=== PATIENT | male | born 1945 | race Caucasian/White ===

== ENCOUNTER → 2018-06-05 | Outpatient (CLI) | payer BC, MEDICARE ==
--- NOTE | 2018-06-05 11:53 | XR ---
EXAMINATION TYPE: XR chest 2V DATE OF EXAM: 06/05/2018 COMPARISON: NONE TECHNIQUE: PA and lateral views submitted. HISTORY: Shortness of breath FINDINGS: The lungs are clear and there is no pneumothorax, pleural effusion, or focal pneumonia. Arthropathy of the shoulders. Atherosclerotic change aorta. Degenerative change of the spine. Subsegmental basil ar changes are noted. IMPRESSION: 1. Subsegmental basilar changes may been the basis of atelectasis rather than infiltrate correlate cl inically..
[2018-06-05 12:29] LABS: Basophils % (A) 1 %; Eosinophils # (A) 0.2 k/uL (0-0.7); Eosinophils % (A) 3 %; HCT 42.8 % (39.0-53.0); HGB 14.8 gm/dL (13.0-17.5); Lymphocytes # (A) 1.4 k/uL (1.0-4.8); Lymphocytes % (A) 22 %; MCH 32.9 pg (25.0-35.0); MCHC 34.5 g/dL (31.0-37.0); MCV 95.3 fL (80.0-100.0); Mean Platelet Volume 7.2; Monocytes # (A) 0.4 k/uL (0-1.0); Monocytes % (A) 6 %; Neutrophils # (A) 4.3 k/uL (1.3-7.7); Neutrophils % (A) 66 %; Platelet Count 292 k/uL (150-450); RBC 4.49 m/uL (4.30-5.90); RDW 12.6 % (11.5-15.5); WBC 6.5 k/uL (3.8-10.6)
[2018-06-05 15:13] LABS: Erythrocyte Sedimentation Rate 8 mm/hr (0-15)
[2018-06-05 19:02] LABS: Vitamin D 25 Hydroxy 57.5 ng/mL (30.0-100.0)
[2018-06-05 19:47] LABS: ALT 24 U/L (10-49); AST 22 U/L (14-35); Albumin/Globulin Ratio 1.79 (1.60-3.17); Alkaline Phosphatase 83 U/L (41-126); C Reactive Protein <0.4 mg/dL (0.0-0.8); Calcium 9.2 mg/dL (8.7-10.3); Carbon Dioxide 25.1 mmol/L (21.6-31.8); Chloride 101 mmol/L (96-109); Cholesterol 152 mg/dL (0-200); Creatine Kinase 212 U/L (35-257); GGT 51 U/L (0-73); Globulin 2.4 g/dL (1.6-3.3); Glucose 104 mg/dL (70-110); LDL Cholesterol,Calculated 74.8 mg/dL (0.0-131.0); Potassium 4.5 mmol/L (3.5-5.5); Sodium 134 mmol/L (135-145); Total Bilirubin 0.4 mg/dL (0.3-1.2); Total Protein 6.7 g/dL (6.2-8.2)
[2018-06-05 19:54] LABS: Hepatitis C IgG Antibody Non-Reactive (Non-Reactive)
== END ==
LOC: LABWHC1 10:30
PROVIDERS: ATTEND Internal Medicine
DX: R06.02 Shortness of breath (principal); N40.0 Benign prostatic hyperplasia without lower urinary tract symptoms; J44.9 Chronic obstructive pulmonary disease, unspecified; E78.5 Hyperlipidemia, unspecified; E03.9 Hypothyroidism, unspecified; M81.0 Age-related osteoporosis without current pathological fracture; E55.9 Vitamin D deficiency, unspecified
CPT/HCPCS: 86803; 80061; 80053; 85652; 84443; 82550; 82977; 85025; 86140; 82306; 71046; 36415; G0103

== ENCOUNTER → 2018-08-08 | Outpatient (CLI) | payer OTHER ==
--- NOTE | 2018-08-08 17:46 | MR ---
EXAMINATION TYPE: MR wrist RT wo con DATE OF EXAM: 08/08/2018 COMPARISON: HISTORY: Rt wrist pain, posterior aspect Standard multiplanar, multisequence MRI departmental protocol Multiplanar, multisequence images of the right wrist were acquired. FINDINGS: Intercarpal joint spaces are fairly normal. Proximal metacarpals appear intact. There is mi ld spurring at the first carpometacarpal joint. On the T2 images there is some diffuse increased sign al in the distal radius near the radiocarpal joint. This is seen on the medial aspect. There is moder ate narrowing of the radiocarpal joint space. There is mild increased signal within the lunate. There are small degenerative cysts in the articular surface of the distal radius. The extensor and flexor tendons appear intact. Distal ulna is intact. There is no evidence of a soft tissue mass. There are small amount of fluid at the radial ulnar joint. IMPRESSION: Osteoarthritis of the radiocarpal joint with small joint effusion. There is edema in the lunate and d istal radius consistent with bone bruising. No fracture seen. Mild osteoarthritis at the first carpom etacarpal joint.
== END ==
LOC: RADMRIMAIN 08:10
DX: M19.031 Primary osteoarthritis, right wrist (principal); M18.9 Osteoarthritis of first carpometacarpal joint, unspecified

== ENCOUNTER → 2018-08-13 | Outpatient (CLI) | payer MEDICARE, OTHER ==
--- NOTE | 2018-08-13 13:52 | XR ---
Lumbosacral spine HISTORY: Pain 5 views of lumbosacral spine No comparisons Bone mineralization is reduced. There is no evident spondylolysis. Multilevel spondylosis is present. Loss of disc height L5-S1, L4-5 with associated vacuum phenomenon. Superior endplate of L3 shows mil d depression centrally. L2 shows loss of height of approximately 25% superior endplate is associated vacuum phenomenon. Suspect there is mild retropulsion. Sclerosis present in the posterior elements of the lower lumbar spine. Mild anterior wedging present at T12. Postop changes are noted in the abdome n. Sclerotic vascular calcifications are present. IMPRESSION: Vertebral compression fractures of indeterminate age. Degenerative disease and facet arth ropathy.
--- NOTE | 2018-08-13 13:53 | XR ---
Thoracic spine HISTORY: Pain 3 views of the thoracic spine Bone mineralization is reduced. There is multilevel spondylosis. Thoracic vertebral bodies show prese rved height and alignment. Postop changes are noted incidentally. IMPRESSION: Thoracic spondylosis, osteopenia.
== END | disposition home or self-care (01) ==
LOC: LABWHC1 11:49
PROVIDERS: ATTEND Internal Medicine
DX: M47.817 Spondylosis without myelopathy or radiculopathy, lumbosacral region (principal); M47.814 Spondylosis without myelopathy or radiculopathy, thoracic region; M46.97 Unspecified inflammatory spondylopathy, lumbosacral region; M48.57XA Collapsed vertebra, not elsewhere classified, lumbosacral region, initial encounter for fracture; M85.88 Other specified disorders of bone density and structure, other site; J44.9 Chronic obstructive pulmonary disease, unspecified
CPT/HCPCS: 36415; 72072; 72110; 82103

== ENCOUNTER → 2018-09-18 | Outpatient (CLI) | payer BC, MEDICARE ==
--- NOTE | 2018-09-20 19:55 | MR ---
EXAMINATION TYPE: MR lumbar spine wo/w con DATE OF EXAM: 09/18/2018 COMPARISON: None HISTORY: Chronic LBP, BLE radic TECHNIQUE: Multiplanar, multisequence images of the lumbar spine were acquired utilizing 8.5 mL intravenous Gada vist gadolinium contrast. Lumbar vertebra have normal alignment. There is L4-5 disc space narrowing. There is mild narrowing of the other disc spaces. There is 20% anterior wedging of L1 vertebral body. There is 10% wedging of T 12 vertebral body. Lumbar nerve roots appear normal. There is mild posterior disc bulging from L2 to L5. There is no spinal stenosis. There is no lumbar paraspinal mass. There is no pathologic enhanceme nt. There is multilevel hypertrophic facet arthropathy. IMPRESSION: Multilevel spondylotic changes. Mild compression fractures of T12 and L1 and L3 are not changed jaylin red to lumbar spine x-rays exam of 08/13/2018. No acute fracture seen.. No spinal stenosis.
== END | disposition home or self-care (01) ==
LOC: RADMRIMAIN 19:08
DX: M47.26 Other spondylosis with radiculopathy, lumbar region (principal); S32.019A Unspecified fracture of first lumbar vertebra, initial encounter for closed fracture; S32.039A Unspecified fracture of third lumbar vertebra, initial encounter for closed fracture
CPT/HCPCS: 72158; A9585

== ENCOUNTER → 2018-10-22 | Outpatient (CLI) | payer BC, MEDICARE ==
--- NOTE | 2018-10-22 15:58 | US ---
EXAMINATION TYPE: US venous doppler duplex LE RT DATE OF EXAM: 10/22/2018 3:49 PM COMPARISON: NONE CLINICAL HISTORY: R22.41 Swelling Right Lower Extremity. Right leg pain and swelling x 2 days SIDE PERFORMED: Right TECHNIQUE: The lower extremity deep venous system is examined utilizing real time linear array sonog janie with graded compression, doppler sonography and color-flow sonography. VESSELS IMAGED: External Iliac Vein (EIV) Common Femoral Vein Deep Femoral Vein Greater Saphenous Vein * Femoral Vein Popliteal Vein Small Saphenous Vein * Proximal Calf Veins (* superficial vessels) Right Leg: Appears negative for DVT IMPRESSION: Right lower extremity ultrasound negative for deep venous thrombosis.
== END | disposition home or self-care (01) ==
LOC: RADUSWWP 15:29
PROVIDERS: ATTEND Internal Medicine
DX: R22.41 Localized swelling, mass and lump, right lower limb (principal); Z88.5 Allergy status to narcotic agent

== ENCOUNTER → 2019-03-25 | Day surgery (SDC) | payer BC, MEDICARE, OTHER ==
[2019-03-24 12:32] VITALS: BMI 26.0
[~2019-03-25] MED LIST: LACTATED RINGERS 1,000 ML IV SCH; LIDOCAINE 1% 20 ML VIAL (10MG/ML) FOR IV START INTRADERMA PRN; LIDOCAINE 1% INJ 10MG/ML (20 ML MDV) ONE; PROPOFOL 10 MG/ML 20 ML VIAL IV ONE
[2019-03-25 08:21] VITALS: RESP 16; TEMP 97.8
--- NOTE | 2019-03-25 09:32 | P.PCN ---
Date of Procedure: 03/25/19 Description of Procedure: Brief history: Patient is a pleasant 73-year-old male presenting for outpatient EGD and colonoscopy for screening for malignant neoplasm of the colon and Perez's esophagus surveillance. Procedure performed: Esophagogastroduodenoscopy with biopsy Colonoscopy Estimated blood loss: Minimal. Preoperative diagnosis: Perez's esophagus, screening for malignant neoplasm of the colon, patient reports last colonoscopy 2 years ago [place]est[place] [facility] [place]: After informed consent was obtained from the patient was brought into the endoscopy unit and IV sedation was administered by anesthesia under continuous monitoring. Initially upper endoscopy was done. The Olympus GF 190 video endoscope was inserted into the mouth and esophagus intubated without any difficulty and was gradually advanced into the stomach and duodenum and carefully examined. The bulb and second part of the duodenum appeared normal, with biopsies taken . The scope was then withdrawn into the stomach adequately insufflated with air and upon careful examination the antrum and body, cardia and fundus appeared normal, except for some mild scattered erythema in the antrum and body suggestive of mild gastritis with biopsies taken . The scope was then withdrawn into the esophagus. The GE junction was located at 36 cm to the incisors. A 3 cm segment of salmon-colored mucosa in the distal esophagus consistent with patient's history of Perez's esophagus noted and biopsied. A small hiatal hernia was also noted. Rest of the esophagus appeared normal. Patient tolerated the procedure well. At this time the patient continued to remain sedation. Initial digital rectal examination was normal. Olympus CF 190 video colonoscope was then inserted into the rectum and gradually advanced to the cecum without any difficulty. Careful examination was performed as the scope was gradually being withdrawn. The prep was excellent. The cecum, ascending colon, transverse colon, descending colon, sigmoid colon and rectum appeared normal. Multiple diverticula noted in the left colon. Retroflexion was performed in the rectum and no lesions were noted. Patient tolerated the procedure well. Impression: 1. Mild gastritis antrum body, biopsied. Duodenal biopsies. 3 cm segment of Perez's esophagus biopsied. 2. Moderate left colonic diverticulosis. Recommendations: Findings of this examination were discussed with the patient as well as his . Okay to resume diet. Okay to resume medications. Await pathology from biopsies. Repeat EGD in 3 years for Perez's screening. Consideration for repeat colonoscopy in 5-10 years based on previous findings on colonoscopy which the patient is unable to report at this time.
[2019-03-25 09:48] VITALS: BP 118/76; PULSE 63
== END ==
LOC: ORWHC2ENDO 07:50
PROVIDERS: ATTEND Internal Medicine
DX: Z12.11 Encounter for screening for malignant neoplasm of colon (principal); K57.30 Diverticulosis of large intestine without perforation or abscess without bleeding; K44.9 Diaphragmatic hernia without obstruction or gangrene; K29.50 Unspecified chronic gastritis without bleeding; K22.70 Barrett's esophagus without dysplasia; K21.0 Gastro-esophageal reflux disease with esophagitis; Z88.5 Allergy status to narcotic agent; I10 Essential (primary) hypertension; E07.9 Disorder of thyroid, unspecified; F32.9 Major depressive disorder, single episode, unspecified; Z79.899 Other long term (current) drug therapy; Z79.890 Hormone replacement therapy; Z79.891 Long term (current) use of opiate analgesic; Z79.51 Long term (current) use of inhaled steroids; Z98.890 Other specified postprocedural states
CPT/HCPCS: 88305; 45378; 43239; J2001; J2704

== ENCOUNTER 2019-07-17 17:52 | Emergency (ER) | payer MEDICARE, BC ==
--- NOTE | 2019-07-17 18:22 | XR ---
EXAMINATION TYPE: XR chest 1V portable DATE OF EXAM: 07/17/2019 COMPARISON: 06/05/2018 HISTORY: Cough and fever TECHNIQUE: 2 views FINDINGS: Heart and mediastinum are normal for age. There is some coarse interstitial and airspace de nsity right lower lobe. Left lung is clear. There is no heart failure. There are no hilar masses. IMPRESSION: There is a new right lower lobe pneumonia compared to old exam. Normal heart.
[2019-07-17] MEDS ORDERED: cefTRIAXone IN SWFI 1,000 MG/10 ML SYRINGE IVP STA (18:31)
[2019-07-17 18:39] LABS: Basophils % (A) 0 %; Eosinophils # (A) 0.2 k/uL (0-0.7); Eosinophils % (A) 2 %; HCT 43.6 % (39.0-53.0); HGB 14.1 gm/dL (13.0-17.5); Lymphocytes # (A) 0.8 k/uL (1.0-4.8); Lymphocytes % (A) 11 %; MCH 31.7 pg (25.0-35.0); MCHC 32.3 g/dL (31.0-37.0); MCV 98.2 fL (80.0-100.0); Mean Platelet Volume 7.7; Monocytes # (A) 0.6 k/uL (0-1.0); Monocytes % (A) 8 %; Neutrophils # (A) 5.7 k/uL (1.3-7.7); Neutrophils % (A) 76 %; Platelet Count 219 k/uL (150-450); RBC 4.44 m/uL (4.30-5.90); RDW 12.2 % (11.5-15.5); WBC 7.5 k/uL (3.8-10.6)
[2019-07-17 18:51] LABS: Appearance,Urine Clear (Clear); Bilirubin,Urine Negative (Negative); Blood,Urine Negative (Negative); Color,Urine Yellow; Glucose,Urine (UA) Negative (Negative); Ketones,Urine Negative (Negative); Leukocyte Esterase,Urine Negative (Negative); Mucus,Urine Rare /hpf; Nitrite,Urine Negative (Negative); PH, Urine 7.5 (5.0-8.0); Protein,Urine 1+ (Negative); Specific Gravity,Urine 1.015 (1.001-1.035); WBC,Urine 2 /hpf (0-5)
[2019-07-17 18:52] LABS: ALT 14 U/L (4-49); AST 19 U/L (17-59); African American GFR (CKD) >90 (>60 ml/min/1.73 sqM); Albumin 3.9 g/dL (3.5-5.0); Alkaline Phosphatase 86 U/L (38-126); Anion Gap 9 mmol/L; Blood Urea Nitrogen 10 mg/dL (9-20); C Reactive Protein 74.2 mg/L (<10.0); Calcium 8.5 mg/dL (8.4-10.2); Carbon Dioxide 21 mmol/L (22-30); Chloride 107 mmol/L (98-107); Glucose 113 mg/dL (74-99); LDH 543 U/L (313-618); Magnesium 2.2 mg/dL (1.6-2.3); Non-African American GFR(CKD) >90 (>60 ml/min/1.73 sqM); Potassium 4.1 mmol/L (3.5-5.1); Sodium 137 mmol/L (137-145); Total Bilirubin 0.8 mg/dL (0.2-1.3); Total Protein 7.1 g/dL (6.3-8.2)
[2019-07-17 18:56] LABS: D-Dimer 0.57 mg/L FEU (<0.60); Partial Thromboplastin Time 24.6 sec (22.0-30.0); Prothrombin Time 10.1 sec (9.0-12.0)
[2019-07-17 19:37] VITALS: PULSE 84
[2019-07-17] MEDS ORDERED: ACETAMINOPHEN TAB 325 MG TAB PO STA (19:47)
--- NOTE | 2019-07-17 19:47 | ED ---
Fever HPI - General Source: patient Mode of arrival: ambulatory Limitations: no limitations <Nancie Johnson - Last Filed: 07/17/19 20:14> <Junior Shelby - Last Filed: 07/17/19 20:20> - General Chief Complaint: Fever Stated Complaint: Fever Time Seen by Provider: 07/17/19 17:59 - History of Present Illness Initial Comments: 73-year-old male presented for cough fevers x 2-3 days. Patient states he's had a cough for the past 2 days. He states he has felt warm today. Patient states he has slight diarrhea. Denies bloody or dark stools. Patient denies any rashes. Patient denies any chest pain is due to slight shortness of breath. Patient denies any headache or neck stiffness as he noticed dysuria or urgency frequency. Patient has no additional complaints he is not here in respiratory distress on arrival. Patient is actually well room air he is not tachycardic and blood pressure stable. Patient is very pleasant. (Nancie Johnson) - Related Data Home Medications Medication Instructions Recorded Confirmed Lisinopril [Zestril] 20 mg PO QAM 10/23/15 07/17/19 [place]-3 Fatty Acids/Fish Oil [Fish 1 tab PO DAILY 10/23/15 07/17/19 Oil 1,000 mg Softgel] Oxybutynin Chloride [Ditropan] 5 mg PO HS 10/23/15 07/17/19 Tamsulosin [Flomax] 0.4 mg PO BID 10/23/15 07/17/19 buPROPion SR [Wellbutrin SR] 150 mg PO QAM 10/23/15 07/17/19 Albuterol Sulfate [Albuterol 2 puff PO Q6H PRN 03/24/19 07/17/19 Sulfate Hfa] Beclomethasone Dip 80 Mcg/Puff 1 puff INHALATION BID 03/24/19 07/17/19 [Qvar 80 mcg] Cyclobenzaprine HCl 10 mg PO HS PRN 03/24/19 07/17/19 Dorzolamide 2% [Trusopt 2%] 1 drops BOTH EYES BID 03/24/19 07/17/19 Gabapentin [Neurontin] 100 mg PO BID 03/24/19 07/17/19 Glucosam/Bennie-Msm1/C/Francis/Bosw 1 each PO DAILY 03/24/19 07/17/19 [Glucosamine-Chondroitin Tablet] HYDROcodone/APAP 5-325MG [[place] 1 tab PO TID PRN 03/24/19 07/17/19 5-325] Hydrochlorothiazide [Hydrodiuril] 50 mg PO DAILY 03/24/19 07/17/19 Latanoprost/Pf [Latanoprost 0.005% 1 drop BOTH EYES HS 03/24/19 07/17/19 Eye Drop] Levothyroxine Sodium [Synthroid] 75 mcg PO QAM 03/24/19 07/17/19 Memantine HCl 10 mg PO BID 03/24/19 07/17/19 Methylphenidate HCl [Ritalin LA] 20 mg PO BID 03/24/19 07/17/19 Multivitamins, Thera [Multivitamin 1 tab PO DAILY 03/24/19 07/17/19 (formulary)] Salsalate [Disalcid] 750 mg PO BID 03/24/19 07/17/19 amLODIPine [Norvasc] 5 mg PO HS 03/24/19 07/17/19 FLUoxetine HCL [PROzac] 10 mg PO DAILY 07/17/19 07/17/19 Omeprazole 40 mg PO BID 07/17/19 07/17/19 Simvastatin [Zocor] 40 mg PO HS 07/17/19 07/17/19 Timolol 0.5% Ophth Soln [Timoptic 1 drop BOTH EYES DAILY 07/17/19 07/17/19 0.5% Ophth Soln] Previous Rx's Medication Instructions Recorded Azithromycin [Zithromax Z-pack] 0 mg PO DIRECTED #6 tab 07/17/19 Allergies Allergy/AdvReac Type Severity Reaction Status Date / Time codeine Allergy Confusion Verified 07/17/19 17:58 Review of Systems ROS Other: All systems not noted in ROS Statement are negative. <Nancie Johnson - Last Filed: 07/17/19 20:14> ROS Other: All systems not noted in ROS Statement are negative. <Junior Shelby - Last Filed: 07/17/19 20:20> ROS Statement: Those systems with pertinent positive or pertinent negative responses have been documented in the HPI. Past Medical History Past Medical History: GERD/Reflux, Hyperlipidemia, Hypertension, Osteoarthritis (OA), Prostate Disorder, Rheumatoid Arthritis (RA) Additional Past Medical History / Comment(s): APONTE'S ESOPHAGUS,enlarged pros núñez History of Any Multi-Drug Resistant Organisms: None Reported Past Surgical History: Cholecystectomy, Ear Surgery, Hernia Repair, Orthopedic Surgery Additional Past Surgical History / Comment(s): HIATAL HERNIA REPAIR X 2, . REPAIR RIGHT EAR DRUM X 2. ORIF RIGHT ANKLE. Past Anesthesia/Blood Transfusion Reactions: No Reported Reaction Past Psychological History: ADD/ADHD, Depression Smoking Status: Never smoker Past Alcohol Use History: None Reported, Occasional Past Drug Use History: None Reported - Past Family History Mother Family Medical History: No Reported History Father Family Medical History: Cancer Additional Family Medical History / Comment(s): bone Sister(s) Family Medical History: Cancer Additional Family Medical History / Comment(s): bone <ElizabethNancie L - Last Filed: 07/17/19 20:14> General Exam Limitations: no limitations <Nancie Johnson L - Last Filed: 07/17/19 20:14> - General Exam Comments Initial Comments: General: The patient is awake and alert, in no distress Eye: +3 mm pupils are equal, round and reactive to light, extra-ocular mov ements are intact. No nystagmus. There is normal conjunctiva bilaterally. No signs of icterus. No photophobia Ears, nose, mouth and throat: There are moist mucous membranes and no oral lesions. Oropharynx was not erythematous there is no tonsillar enlargement exudates or lesions. Uvula midline. Tympanic membranes are not erythematous or is no effusions bulging or retraction. No tenderness to palpation of the mastoid. No anterior cervical lymphadenopathy. Rhinorrhea, clear and bilateral nares. No tripoding, no drooling. Neck: The neck is supple, there is no tenderness or JVD. No nuchal rigidity Cardiovascular: There is a regular rate and rhythm. No murmur, rub or gallop is appreciated. Respiratory: Respirations are non-labored, breath sounds are equal. No wheezes, stridor, rhonchi. Rales noted mid right side, mild. No retractions or abdominal breathing. Dry cough. Gastrointestinal: Soft, non-distended, non-tender abdomen without masses or organomegaly noted. There is no rebound or guarding present. Bowel sounds are unremarkable. Musculoskeletal: Normal ROM, no tenderness. Strength 5/5. Sensation intact. Radial pulses equal bilaterally 2+. Neurological: A&O x 3. CN II-XII intact grossly, There are no obvious motor or sensory deficits. Coordination appears grossly intact. Speech appears normal, no muffling. Skin: Skin is warm and dry and no rashes or lesions are noted. No extremity edema Psychiatric: Cooperative (Nancie Johnson) Course <Junior Shelby - Last Filed: 07/17/19 20:20> Vital Signs 07/17/19 07/17/19 17:54 19:35 Temperature 99.4 F 100.5 F H Pulse Rate 86 84 Respiratory 18 16 Rate Blood Pressure 136/83 126/84 O2 Sat by Pulse 96 96 Oximetry - Reevaluation(s) Reevaluation #1: 07/17/19 20:19 Patient is cooperative [id number] evaluation patient he did present with complaints consistent with pneumonia. Covid is suspected. Patient was offered admission is refusing at this time he is aware the risks and benefits thereof. Return parameters. I do agree with the assessment and plan (Junior Shelby) Medical Decision Making - Lab Data Result diagrams: 07/17/19 18:20 07/17/19 18:20 <Nancie Johnson - Last Filed: 07/17/19 20:14> - Lab Data Result diagrams: 07/17/19 18:20 07/17/19 18:20 <Junior Shelby - Last Filed: 07/17/19 20:20> - Medical Decision Making 73 (Nancie Johnson) - Lab Data Lab Results 07/17/19 07/17/19 07/17/19 Range/Units 18:20 18:20 18:20 WBC 7.5 (3.8-10.6) k/uL RBC 4.44 (4.30-5.90) m/uL Hgb 14.1 (13.0-17.5) gm/dL Hct 43.6 (39.0-53.0) % MCV 98.2 (80.0-100.0) fL MCH 31.7 (25.0-35.0) pg MCHC 32.3 (31.0-37.0) g/dL RDW 12.2 (11.5-15.5) % Plt Count 219 (150-450) k/uL Neutrophils % 76 % Lymphocytes % 11 % Monocytes % 8 % Eosinophils % 2 % Basophils % 0 % Neutrophils # 5.7 (1.3-7.7) k/uL Lymphocytes # 0.8 L (1.0-4.8) k/uL Monocytes # 0.6 (0-1.0) k/uL Eosinophils # 0.2 (0-0.7) k/uL Basophils # 0.0 (0-0.2) k/uL PT 10.1 (9.0-12.0) sec INR 1.0 (<1.2) APTT 24.6 (22.0-30.0) sec D-Dimer 0.57 (<0.60) mg/L FEU Sodium 137 (137-145) mmol/L Potassium 4.1 (3.5-5.1) mmol/L Chloride 107 (98-107) mmol/L Carbon Dioxide 21 L (22-30) mmol/L Anion Gap 9 mmol/L BUN 10 (9-20) mg/dL Creatinine 0.79 (0.66-1.25) mg/dL Est GFR (CKD-EPI)AfAm >90 (>60 ml/min/1.73 sqM) Est GFR (CKD-EPI)NonAf >90 (>60 ml/min/1.73 sqM) Glucose 113 H (74-99) mg/dL Plasma Lactic Acid Sebastien (0.7-2.0) mmol/L Calcium 8.5 (8.4-10.2) mg/dL Magnesium 2.2 (1.6-2.3) mg/dL Total Bilirubin 0.8 (0.2-1.3) mg/dL AST 19 (17-59) U/L ALT 14 (4-49) U/L Alkaline Phosphatase 86 (38-126) U/L Lactate Dehydrogenase 543 (313-618) U/L C-Reactive Protein 74.2 H (<10.0) mg/L Total Protein 7.1 (6.3-8.2) g/dL Albumin 3.9 (3.5-5.0) g/dL Urine Color Urine Appearance (Clear) Urine pH (5.0-8.0) Ur Specific [place] (1.001-1.035) Urine Protein (Negative) Urine Glucose (UA) (Negative) Urine Ketones (Negative) Urine Blood (Negative) Urine Nitrite (Negative) Urine Bilirubin (Negative) Urine Urobilinogen (<2.0) mg/dL Ur Leukocyte Esterase (Negative) Urine WBC (0-5) /hpf Urine Mucus (None) /hpf 07/17/19 07/17/19 Range/Units 18:20 18:20 WBC (3.8-10.6) k/uL RBC (4.30-5.90) m/uL Hgb (13.0-17.5) gm/dL Hct (39.0-53.0) % MCV (80.0-100.0) fL MCH (25.0-35.0) pg MCHC (31.0-37.0) g/dL RDW (11.5-15.5) % Plt Count (150-450) k/uL Neutrophils % % Lymphocytes % % Monocytes % % Eosinophils % % Basophils % % Neutrophils # (1.3-7.7) k/uL Lymphocytes # (1.0-4.8) k/uL Monocytes # (0-1.0) k/uL Eosinophils # (0-0.7) k/uL Basophils # (0-0.2) k/uL PT (9.0-12.0) sec INR (<1.2) APTT (22.0-30.0) sec D-Dimer (<0.60) mg/L FEU Sodium (137-145) mmol/L Potassium (3.5-5.1) mmol/L Chloride (98-107) mmol/L Carbon Dioxide (22-30) mmol/L Anion Gap mmol/L BUN (9-20) mg/dL Creatinine (0.66-1.25) mg/dL Est GFR (CKD-EPI)AfAm (>60 ml/min/1.73 sqM) Est GFR (CKD-EPI)NonAf (>60 ml/min/1.73 sqM) Glucose (74-99) mg/dL Plasma Lactic Acid Sebastien 1.1 (0.7-2.0) mmol/L Calcium (8.4-10.2) mg/dL Magnesium (1.6-2.3) mg/dL Total Bilirubin (0.2-1.3) mg/dL AST (17-59) U/L ALT (4-49) U/L Alkaline Phosphatase (38-126) U/L Lactate Dehydrogenase (313-618) U/L C-Reactive Protein (<10.0) mg/L Total Protein (6.3-8.2) g/dL Albumin (3.5-5.0) g/dL Urine Color Yellow Urine Appearance Clear (Clear) Urine pH 7.5 (5.0-8.0) Ur Specific [place] 1.015 (1.001-1.035) Urine Protein 1+ H (Negative) Urine Glucose (UA) Negative (Negative) Urine Ketones Negative (Negative) Urine Blood Negative (Negative) Urine Nitrite Negative (Negative) Urine Bilirubin Negative (Negative) Urine Urobilinogen 8.0 (<2.0) mg/dL Ur Leukocyte Esterase Negative (Negative) Urine WBC 2 (0-5) /hpf Urine Mucus Rare H (None) /hpf Disposition Is patient prescribed a controlled substance at d/c from ED?: No Time of Disposition: 20:11 <Nancie Johnson - Last Filed: 07/17/19 20:14> <Junior Shelby - Last Filed: 07/17/19 20:20> Clinical Impression: Pneumonia, Fever, Cough, Suspected COVID-19 virus infection Disposition: HOME SELF-CARE Condition: Good Instructions (If sedation given, give patient instructions): Viral Pneumonia (ED), Fever in Adults (ED) Additional Instructions: Please use medication as discussed. Please follow-up with family doctor in the next 24 hours, symptoms may progress rapidly as you declined admission you MUST return to the ER if there is any worsening of shortness of breath or symptoms. Please return to emergency room if the symptoms increase or worsen or for any other concerns. Prescriptions: Azithromycin [Zithromax Z-pack] 0 mg PO DIRECTED #6 tab Referrals: Nakul Burt MD [Primary Care Provider] - 1-2 days
[2019-07-17 20:24] VITALS: BP 135/76; RESP 18; TEMP 101.9
[2019-07-17 22:56] LABS: Ferritin 331.1 ng/mL (22.0-322.0)
== END 2019-07-17 20:27 | disposition home or self-care (01) ==
LOC: EC 17:52
DX: J18.9 Pneumonia, unspecified organism (principal); K21.9 Gastro-esophageal reflux disease without esophagitis; E78.5 Hyperlipidemia, unspecified; I10 Essential (primary) hypertension; M06.9 Rheumatoid arthritis, unspecified; F32.9 Major depressive disorder, single episode, unspecified; F90.9 Attention-deficit hyperactivity disorder, unspecified type; N40.0 Benign prostatic hyperplasia without lower urinary tract symptoms; Z79.899 Other long term (current) drug therapy; Z88.5 Allergy status to narcotic agent; Z20.828 Contact with and (suspected) exposure to other viral communicable diseases; Z53.20 Procedure and treatment not carried out because of patient's decision for unspecified reasons
CPT/HCPCS: 36415; 93005; 85379; 80053; 82728; 83605; 83615; 83735; 85025; 85610; 85730; 86140; 81001; 87040; 84145; 87635; 71045; 99284; 96374; J0696

== ENCOUNTER → 2020-03-06 | Outpatient (CLI) | payer MEDICARE, BC ==
[2020-03-06 12:19] LABS: Basophils # (A) 0.1 k/uL (0-0.2); Basophils % (A) 1 %; Eosinophils # (A) 0.1 k/uL (0-0.7); Eosinophils % (A) 2 %; HCT 43.3 % (39.0-53.0); HGB 14.6 gm/dL (13.0-17.5); Lymphocytes # (A) 1.3 k/uL (1.0-4.8); Lymphocytes % (A) 22 %; MCH 32.9 pg (25.0-35.0); MCHC 33.7 g/dL (31.0-37.0); MCV 97.5 fL (80.0-100.0); Mean Platelet Volume 7.1; Monocytes # (A) 0.4 k/uL (0-1.0); Monocytes % (A) 6 %; Neutrophils # (A) 4.2 k/uL (1.3-7.7); Neutrophils % (A) 69 %; Platelet Count 254 k/uL (150-450); RBC 4.44 m/uL (4.30-5.90)
[2020-03-06 12:24] LABS: African American GFR (CKD) >90 (>60 ml/min/1.73 sqM); Anion Gap 7 mmol/L; Blood Urea Nitrogen 14 mg/dL (9-20); Calcium 9.1 mg/dL (8.4-10.2); Carbon Dioxide 25 mmol/L (22-30); Chloride 106 mmol/L (98-107); Glucose 108 mg/dL (74-99); Non-African American GFR(CKD) 87 (>60 ml/min/1.73 sqM); Potassium 4.8 mmol/L (3.5-5.1); Sodium 138 mmol/L (137-145)
== END | disposition home or self-care (01) ==
LOC: LABPAT 10:59
PROVIDERS: ATTEND Urology
DX: Z01.818 Encounter for other preprocedural examination (principal); N40.1 Benign prostatic hyperplasia with lower urinary tract symptoms; Z79.899 Other long term (current) drug therapy; I10 Essential (primary) hypertension
CPT/HCPCS: 36415; 80048; 85025; 93005

== ENCOUNTER 2020-03-09 07:32 | Day surgery (SDC) | payer MEDICARE, BC ==
[2020-03-08 10:41] VITALS: BMI 27.0
[~2020-03-09 07:32] MED LIST changes: +HYDROmorphone 0.5 MG/0.5 ML SYRINGE IVP PRN; -LIDOCAINE 1% 20 ML VIAL (10MG/ML) FOR IV START INTRADERMA PRN; -LIDOCAINE 1% INJ 10MG/ML (20 ML MDV) ONE; +ONDANSETRON 4 MG/2 ML VIAL IVP ONE; -PROPOFOL 10 MG/ML 20 ML VIAL IV ONE; +fentaNYL (PF) 50 MCG/ML 2 ML AMP IV PRN
[2020-03-09] MEDS ORDERED: LIDOCAINE 1% (10MG/ML) FOR IV START INTRADERMA ONE (08:06)
--- NOTE | 2020-03-09 08:26 | P.GSHP ---
History of Present Illness H&P Date: 03/09/20 Chief Complaint: Weak urinary stream The patient is a 74-year-old white male with obstructive voiding symptoms despite having taken finasteride for over 5 years. He has taken tamsulosin in the past, and TURP oxybutynin chloride 5 mg daily for 2 years to control his urgency. Cystoscopy shows an obstructing prostate. He underwent a prostate ultrasound with biopsies 02/16/2020. The prostate volume was 52 mL, and biopsies were negative. He has elected to undergo a bipolar transurethral resection of the prostate (TURP) and comes for this reason. - Constitutional Constitutional: Denies chills, Denies fever - Genitourinary (Male) Genitourinary: Reports urinary hesitancy Past Medical History Past Medical History: Asthma, COPD, GERD/Reflux, Hyperlipidemia, Hypertension, Memory Impairment, Osteoarthritis (OA), Prostate Disorder, Rheumatoid Arthritis (RA) Additional Past Medical History / Comment(s): APONTE'S ESOPHAGUS,enlarged prostate History of Any Multi-Drug Resistant Organisms: None Reported Past Surgical History: Cholecystectomy, Ear Surgery, Hernia Repair, Orthopedic Surgery Additional Past Surgical History / Comment(s): HIATAL HERNIA REPAIR X 2, . REPAIR RIGHT EAR DRUM X 2. ORIF RIGHT Foot. Past Anesthesia/Blood Transfusion Reactions: No Reported Reaction Additional Past Anesthesia/Blood Transfusion Reaction / Comment(s): no hx blood transfusion Smoking Status: Never smoker - Past Family History Mother Family Medical History: No Reported History Father Family Medical History: Cancer Additional Family Medical History / Comment(s): bone Sister(s) Family Medical History: Cancer Additional Family Medical History / Comment(s): bone Medications and Allergies Home Medications Medication Instructions Recorded Confirmed Type Tamsulosin [Flomax] 0.8 mg PO QAM 10/23/15 03/09/20 History lisinopriL [Zestril] 20 mg PO QAM 10/23/15 03/09/20 History Beclomethasone Dip 80 Mcg/Puff 1 puff INHALATION BID 03/24/19 03/09/20 History [Qvar 80 mcg] Dorzolamide 2% [Trusopt 2%] 1 drops BOTH EYES BID 03/24/19 03/09/20 History Gabapentin [Neurontin] 100 mg PO BID 03/24/19 03/09/20 History Glucosam/Bennie-Msm1/C/Francis/Bosw 1 each PO DAILY 03/24/19 03/09/20 History [Glucosamine-Chondroitin Tablet] Latanoprost/Pf [Latanoprost 0.005% 1 drop BOTH EYES HS 03/24/19 03/09/20 History Eye Drop] Levothyroxine Sodium [Synthroid] 75 mcg PO QAM 03/24/19 03/09/20 History Methylphenidate HCl [Ritalin LA] 20 mg PO TID 03/24/19 03/09/20 History Salsalate [Disalcid] 750 mg PO BID 03/24/19 03/09/20 History Omeprazole 40 mg PO BID 07/17/19 03/09/20 History Simvastatin [Zocor] 40 mg PO HS 07/17/19 03/09/20 History Timolol 0.5% Ophth Soln [Timoptic 1 drop BOTH EYES DAILY 07/17/19 03/09/20 History 0.5% Ophth Soln] Albuterol Sulfate [Proair Hfa] 1 - 2 puff INHALATION Q6HR PRN 03/08/20 03/09/20 History Aspirin 81 mg PO DAILY 03/08/20 03/09/20 History Cholecalciferol [Vitamin D3 (25 2,000 unit PO DAILY 03/08/20 03/09/20 History Mcg = 1000 Iu)] FLUoxetine HCL [PROzac] 30 mg PO QAM 03/08/20 03/09/20 History Hydrocodone/Acetaminophen [[place] 1 tab PO TID PRN 03/08/20 03/09/20 History 5-325] Memantine [Namenda] 10 mg PO BID 03/08/20 03/09/20 History Qunol Supplement 1 tab PO DAILY 03/08/20 03/09/20 History buPROPion HCL [buPROPion HCL SR] 150 mg PO QAM 03/08/20 03/09/20 History Allergies Allergy/AdvReac Type Severity Reaction Status Date / Time codeine Allergy Confusion Verified 03/08/20 10:14 Surgical - Exam Vital Signs Temp Pulse Resp BP Pulse Ox 97.6 F 68 16 137/76 100 03/09/20 07:56 03/09/20 07:56 03/09/20 07:56 03/09/20 07:56 03/09/20 07:56 - General well developed, well nourished, no distress - Respiratory normal respiratory effort, clear to auscultation - Cardiovascular Rhythm: regular Abnormal Heart Sounds: no systolic murmur, no diastolic murmur, no rub, no S3 Gallop, no S4 Gallop, no click, no other - Abdomen Abdomen: soft, non tender, no guarding, no rigid, no rebound - Genitourinary normal penis with no external lesions, testicles non-tender - Rectum Rectum: normal sphincter tone, no masses, other (Prostate moderately enlarged but smooth) - Psychiatric oriented to time, oriented to person, oriented to place, speech is normal, memory intact Assessment and Plan (1) Benign prostatic hyperplasia with lower urinary tract symptoms Current Visit: Yes Status: Acute Code(s): N40.1 - BENIGN PROSTATIC HYPERPLASIA WITH LOWER URINARY TRACT SYMP SNOMED Code(s): 513336677 Plan: Cystoscopy, bipolar TURP. The patient is aware that there are no remaining medical treatment options. I discussed TURP as well as minimally invasive procedures such as Urolift. He has elected to undergo a TURP. The procedure was reviewed in detail with him, as was the anticipated perioperative course. Risks were discussed, including anesthesia, bleeding, infection, retrograde ejaculation, incontinence, erectile dysfunction, and vesical neck contracture. It is anticipated that he will be discharged home following the procedure, but he understands that he may need to be admitted post-operatively, likely for one night.
[2020-03-09] MEDS ORDERED: fentaNYL (PF) 50 MCG/ML 2 ML AMP ONE (08:48)
[2020-03-09] MEDS ORDERED: ROCURONIUM 10 MG/ML (10 ML VIAL) IV ONE (08:48)
[2020-03-09] MEDS ORDERED: LIDOCAINE 1% INJ 10MG/ML (20 ML MDV) ONE (08:48)
[2020-03-09] MEDS ORDERED: WATER FOR INJECTION, STERILE 10 ML VIAL IV ONE (08:48)
[2020-03-09] MEDS ORDERED: SUCCINYLCHOLINE CHLORIDE 100 MG/5 ML SYR IV ONE (08:48)
[2020-03-09] MEDS ORDERED: PROPOFOL 10 MG/ML 20 ML VIAL IV ONE (08:48)
[2020-03-09] MEDS ORDERED: ePHEDrine SULFATE/0.9% NACL/PF 50 MG/5 ML SYRINGE IV ONE (08:48)
[2020-03-09] MEDS ORDERED: LACTATED RINGERS 1,000 ML IV ONE (11:20)
[2020-03-09 11:28] VITALS: TEMP 97.5
--- NOTE | 2020-03-09 11:35 | P.OP ---
Date of Procedure: 03/09/20 Preoperative Diagnosis: BPH with obstruction Postoperative Diagnosis: Same Procedure(s) Performed: Bipolar transurethral resection of prostate (TURP) Anesthesia: EMELYN Surgeon: Jamey Fitzgerald Estimated Blood Loss (ml): 75 IV fluids (ml): 900 Pathology: other (Prostate chips) Condition: stable Disposition: PACU Indications for Procedure: The patient is a 74-year-old white male with obstructive voiding symptoms despite having taken finasteride for over 5 years. He has taken tamsulosin in the past, and TURP oxybutynin chloride 5 mg daily for 2 years to control his urgency. Cystoscopy shows an obstructing prostate. He underwent a prostate ultrasound with biopsies 02/16/2020. The prostate volume was 52 mL, and biopsies were negative. He has elected to undergo a bipolar transurethral resection of the prostate (TURP) and comes for this reason. Operative Findings: Complete occlusion, bilobar BPH Description of Procedure: The patient was taken in the operating room and placed in the dorsolithotomy position. The external genitalia was prepped and draped sterilely. The 25- Tamazight ACMI resectoscope sheath was introduced into the bladder. The bladder was inspected. Both ureteral orifices were of normal anatomic location and configuration, and clear urine effluxed from both. No tumors or foreign bodies were seen. Examination of the prostate revealed complete obstruction with a bilobar configuration. Using the bipolar cutting loop, the lateral lobes were resected down to the surgical capsule. The floor of the prostate was then resected, proximal to the verumontanum. Lastly, any remaining anterior tissue was resected. The residual apical tissue was then carefully resected. The resection was carried down to the surgical capsule in all 4 quadrants. The prostatic fossa was then carefully examined, and any areas of bleeding were controlled with electrocautery. Excellent hemostasis was attained. The resectoscope was withdrawn into the bulbous urethra. The external urinary sphincter remained intact. The prostatic fossa was open. The Jesus evacuator was used to remove all prostate chips from the bladder. These were saved and sent for pathologic examination. The resectoscope was removed, and a 20 Tamazight Gu catheter was placed. The return was essentially clear. The patient tolerated the procedure well was taken to the recovery room in stable condition.
[2020-03-09 11:39] VITALS: RESP 16
[2020-03-09 12:44] VITALS: BP 131/76; PULSE 65
== END 2020-03-09 13:10 | disposition home or self-care (01) ==
LOC: OR 07:32
PROVIDERS: ATTEND Urology
DX: N40.1 Benign prostatic hyperplasia with lower urinary tract symptoms (principal); N13.8 Other obstructive and reflux uropathy; N41.1 Chronic prostatitis; R39.15 Urgency of urination; R39.11 Hesitancy of micturition; J44.9 Chronic obstructive pulmonary disease, unspecified; K21.9 Gastro-esophageal reflux disease without esophagitis; E78.5 Hyperlipidemia, unspecified; I10 Essential (primary) hypertension; R41.3 Other amnesia; M19.90 Unspecified osteoarthritis, unspecified site; M06.9 Rheumatoid arthritis, unspecified; K22.70 Barrett's esophagus without dysplasia; Z88.5 Allergy status to narcotic agent; Z90.49 Acquired absence of other specified parts of digestive tract; Z98.890 Other specified postprocedural states; Z87.19 Personal history of other diseases of the digestive system; Z86.69 Personal history of other diseases of the nervous system and sense organs; Z87.81 Personal history of (healed) traumatic fracture; Z79.899 Other long term (current) drug therapy; Z79.51 Long term (current) use of inhaled steroids; Z79.890 Hormone replacement therapy; Z79.1 Long term (current) use of non-steroidal anti-inflammatories (NSAID); Z79.82 Long term (current) use of aspirin; Z79.891 Long term (current) use of opiate analgesic; Z97.2 Presence of dental prosthetic device (complete) (partial); Z80.8 Family history of malignant neoplasm of other organs or systems
CPT/HCPCS: 88305; 52601; J0690; J2405; J2001; J3010; J0330; J2704

== ENCOUNTER → 2020-08-10 | Outpatient (CLI) | payer MEDICARE, BC ==
--- NOTE | 2020-08-10 20:26 | CONS ---
CONSULTATION DATE OF SERVICE: 08/10/2020. A 74-year-old gentleman has been evaluated in Sleep Center for significant amount of movements during sleep and awakening from sleep with choking and significant excessive daytime sleepiness. HISTORY OF PRESENT ILLNESS SLEEP-WAKE EVALUATION: SLEEP SCHEDULE: Patient's usual sleep schedule from 11:30 p.m. until 7 a.m. FALLING ASLEEP: No problems with falling asleep. No TV in bedroom. DURING SLEEP: He usually sleeps on the side position. The patient denied snoring but except awakenings from sleep with dry mouth, choking, heartburn, positive history of sleep talking. DURING THE DAY/SLEEP WAKE EVALUATION: In the morning, patient wakes up tired, has difficulties to pay attention, falling asleep during the day, worries about his sleep, has problems with memory, concentration, irritability, depression and anxiety. [place] Sleepiness Scale significantly increased to 17. The patient indicated that if he sits down then he is falling asleep. No clear history of hypnagogic hallucinations, sleep paralysis or cataplexy. PAST MEDICAL HISTORY: Positive for COPD, hypothyroidism, acid reflux, hyperlipidemia, Perez's esophagus. Irritable bowel syndrome. PAST SURGICAL HISTORY: Right ear drum surgery 2 times, hiatal hernia surgery. MEDICATIONS: , inhaler, lisinopril 20 mg once a day. Hydrochlorothiazide 50 mg once a day, albuterol, montelukast, simvastatin 80 mg half tablet once a day, Bisacodyl 5 mg 2 tablets twice a day, dorzolamide eye drops. Latanoprost eye drops, Latanoprost eye drops, Timolol eye drops, Methylphenidate 20 mg 3 times a day, Cyclobenzaprine 5 mg twice a day, hydrocodone 5 mg/325 mg 3 times a day, gabapentin 100 mg twice a day, tamsulosin 0.4 mg 2 capsules daily once a day, omeprazole 20 mg 2 capsules twice a day, levothyroxine 75 mcg once a day. FAMILY HISTORY: Positive for cancer and peptic ulcer disease. REVIEW OF SYSTEMS: Significant excessive daytime sleepiness. Able to fall asleep at any time and that with usage of 60 mg of Methylphenidate. Which indicates very significant sleepiness. PHYSICAL EXAMINATION: GENERAL: gentleman without distress. BP 104/60, HR 72, RR 15, height 5 feet 9 inches, weight 191, BMI 28.2, temperature 97.8, oxygen saturation at room air 97%. Oropharynx: Short distance between soft palate and posterior pharyngeal wall. Big uvula. Neck 15-3/4 inches in circumference. NECK: Supple, no JVD. Thyroid is not palpable. LUNGS: Clear to percussion and to auscultation. Good air exchange. No wheezing or rhonchi. HEART: S1, S2 regular. No murmurs, gallops, or rubs. ABDOMEN: Obese. Soft and nontender. Bowel sounds are present. No organomegaly appreciated. EXTREMITIES: No clubbing or cyanosis. COMMUNITY CULTURAL DEVELOPMENT OFFICER: Awake, alert, and oriented X3. Cranial nerves 2 to 7 intact. There is no fasciculation or atrophy. noted. No focal deficits observed. IMPRESSION: 1. Awakenings from sleep with choking, excessive daytime sleepiness, possible obstructive sleep apnea-hypopnea syndrome. 2. Significant amount of movements during the sleep. Rule out periodic limb movements. 3. Significant excessive daytime sleepiness. [place] Sleepiness Scale increased to 17 and that with usage of 60 mg of Methylphenidate indicate very significant sleepiness. Differential diagnosis should include hypersomnia and narcolepsy. 4. History of hypertension. 5. Hyperlipidemia. 6. Acid reflux. 7. Hypothyroidism. 8. Chronic obstructive pulmonary disease. 9. Irritable bowel syndrome. 10.Glaucoma. 11.Benign prostatic hypertrophy. 12.History of Perez esophagus. PLAN: 1. Polysomnography for evaluation of patient's breathing during sleep. 2. CPAP/BiPAP titration if sleep study confirms obstructive sleep apnea-hypopnea syndrome. 3. Preferable position during sleep on the side. 4. No driving if patient feels any sleepiness. 5. I will see patient for follow up visit to explain results of testing and following plan. 6. If sleep study will be negative for obstructive sleep apnea-hypopnea syndrome, I will proceed with multiple sleep latency test for objective evaluation of patient's symptoms of significant excessive daytime sleepiness. No Methylphenidate during MSLT. Thank you very much for referring this patient for consultation. Sincerely, Elver Trinidad MD, PhD, FAASM Diplomat of [place] [employer] [place] [employer] Foreign Car Mechanic of [facility] [place] MMODL / LUISN: [id number] /
== END ==
LOC: SLEEP 13:55
PROVIDERS: ATTEND Internal Medicine
DX: G47.10 Hypersomnia, unspecified (principal); I10 Essential (primary) hypertension; E78.5 Hyperlipidemia, unspecified; K21.9 Gastro-esophageal reflux disease without esophagitis; E03.9 Hypothyroidism, unspecified; J44.9 Chronic obstructive pulmonary disease, unspecified; K58.9 Irritable bowel syndrome, unspecified; H40.9 Unspecified glaucoma; N40.0 Benign prostatic hyperplasia without lower urinary tract symptoms; Z87.19 Personal history of other diseases of the digestive system; Z88.5 Allergy status to narcotic agent
CPT/HCPCS: 99211

== ENCOUNTER → 2021-02-21 | Outpatient (CLI) | payer MEDICARE, BC ==
--- NOTE | 2021-02-21 18:30 | SFUN ---
SLEEP CENTER FOLLOW UP NOTE DATE OF SERVICE: 02/21/2021 75-year-old gentleman has been followed in Sleep Center to discuss results of sleep studies and following plan. Recently he had a polysomnogram which showed obstructive sleep apnea-hypopnea syndrome in mild range but with quite significant oxygen desaturation to 85.5%, and oxygen level was below normal for the diagnostic night for 2.5 minutes. The patient had a CPAP titration. His respiration improved. Presently, he continues to feel sleepiness during the day. MEDICATIONS: Lisinopril 20 mg once a day, hydrochlorothiazide 50 mg once a day. Simvastatin 80 mg half tablet once a day. Bisacodyl 5 mg 2 tablets twice a day, latanoprost eye drops, timolol eye drops, Methylphenidate 20 mg 3 times a day, cyclobenzaprine 5 mg twice a day, hydrocodone 5 mg-325 mg 3 times a day, gabapentin 100 mg twice a day, Tamsulosin 0.4 mg 2 capsules daily, omeprazole 20 mg 2 capsules twice a day, levothyroxine 75 mcg once a day, montelukast, albuterol. PHYSICAL EXAMINATION: GENERAL: Patient in no distress. BP 119/82, HR 75, RR 16, height 5 feet 8-1/2 inches, weight 187.8 pounds, body mass index 28, temperature 97.3, oxygen saturation at room air 96%. Oropharynx: Short distance between soft palate and posterior pharyngeal wall. Big uvula. NECK: Supple, no JVD. Thyroid is not palpable. LUNGS: Clear to percussion and to auscultation. Good air exchange. No wheezing or rhonchi. HEART: S1, S2 regular. No murmurs, gallops, or rubs. ABDOMEN: Soft and nontender. Bowel sounds are present. No organomegaly appreciated. EXTREMITIES: No clubbing or cyanosis. SECURITY ORDERLY: Awake, alert, and oriented X3. Cranial nerves 2 to 7 intact. There is no fasciculation or atrophy. noted. No focal deficits observed. IMPRESSION: 1. Obstructive sleep apnea-hypopnea syndrome. During CPAP titration, respiration improved. 2. Excessive daytime sleepiness. 3. History of hypertension. 4. Hyperlipidemia. 5. Acid reflux. 6. Hypothyroidism. 7. Chronic obstructive pulmonary disease. 8. Irritable bowel syndrome. 9. Glaucoma. 10.Benign prostatic hypertrophy. 11.History of Perez's esophagus. PLAN: 1. Patient will be started on treatment with CPAP and should use equipment every night for the whole night. 2. Watching weight. 3. Sleep hygiene with regular time in bed for at least 7-1/2 8 hours. 4. No driving if feeling sleepiness. 5. I will see patient in 30-90 days after he started to use CPAP to evaluate clinical response on treatment, compliance with treatment and make any necessary adjustments related to mask fitting, pressure and humidification. Thank you very much for allowing me to participate in the management of your patient. Sincerely, Elver Trinidad MD, PhD, FAASM Diplomat of [place] [employer] Sleep Medicine Board of [place] [employer] Iron Pellet Tester of [facility] [place] MMCRISTOBAL / LUISN: [id number] /
== END ==
LOC: SLEEP 14:11
PROVIDERS: ATTEND Internal Medicine
DX: G47.33 Obstructive sleep apnea (adult) (pediatric) (principal); I10 Essential (primary) hypertension; E78.5 Hyperlipidemia, unspecified; K21.9 Gastro-esophageal reflux disease without esophagitis; E03.9 Hypothyroidism, unspecified; J44.9 Chronic obstructive pulmonary disease, unspecified; K58.9 Irritable bowel syndrome, unspecified; H40.9 Unspecified glaucoma; N40.0 Benign prostatic hyperplasia without lower urinary tract symptoms; Z87.19 Personal history of other diseases of the digestive system; Z79.890 Hormone replacement therapy; Z79.899 Other long term (current) drug therapy; Z88.5 Allergy status to narcotic agent

== ENCOUNTER → 2021-06-21 | Outpatient (CLI) | payer MEDICARE, BC ==
--- NOTE | 2021-06-21 18:26 | SFUN ---
SLEEP CENTER FOLLOW UP NOTE DATE OF SERVICE: 06/21/2021 This 75-year-old gentleman has been followed in Sleep Center for treatment of obstructive sleep apnea-hypopnea syndrome. Recently the patient had a diagnostic polysomnogram which showed that he has obstructive sleep apnea-hypopnea syndrome. He had CPAP titration and subsequently he received a CPAP unit for correction of respiratory abnormalities during sleep. Today is his first visit after he started to use CPAP equipment. I discussed results of his sleep studies with the patient in detail. He is able to use equipment most of the nights without any significant problems. He sleeps better, feels better during the day. [place] Sleepiness Scale today is 3, which is normal. I checked his CPAP unit. Range of the pressure is 5 to 8, average pressure 7.8, maximal 8.0. Usage is 83% of the nights, average usage 4 hours 59 minutes. Leak is 36.4 L/minute, which is slightly high. Apnea-hypopnea index is 3.4, which is within normal range. MEDICATIONS: 1. Lisinopril 20 mg once a day. 2. Hydrochlorothiazide 50 mg once a day. 3. Albuterol. 4. Montelukast. 5. Simvastatin 80 mg half tablet once a day. 6. Latanoprost eye drops. 7. Timolol eye drops. 8. date 1 mg 3 times a day. 9. Cyclobenzaprine 5 mg twice a day. 10.Hydrocodone 5/325 mg 3 times a day. 11.Gabapentin 100 mg twice a day. 12.Tamsulosin 0.4 mg two capsules once a day. 13.Omeprazole 20 mg two capsules twice a day. 14.Levothyroxine 75 mcg once a day. PHYSICAL EXAMINATION: GENERAL: Pleasant patient in no distress. VITAL SIGNS: BP 135/78, HR 82, RR 16, weight 189.2 pounds, which is 2 pounds less than during previous visit. Temperature 97.3, oxygen saturation at room air 97%. HEENT: PERRLA, EOMI, evaluation of oropharynx showed tongue protrudes midline. NECK: Supple, no JVD. Thyroid is not palpable. LUNGS: Clear to percussion and to auscultation. Good air exchange. No wheezing or rhonchi. HEART: S1, S2 regular. No murmurs, gallops, or rubs. ABDOMEN: Soft and nontender. Bowel sounds are present. No organomegaly appreciated. EXTREMITIES: No clubbing or cyanosis. STAFF SCIENTIST: Awake, alert, and oriented X3. Cranial nerves 2 to 7 intact. There is no fasciculation or atrophy. noted. No focal deficits observed. IMPRESSION: 1. Obstructive sleep apnea-hypopnea syndrome. The patient demonstrated borderline compliance with treatment, benefitting from treatment. 2. History of sleepiness with [place] Sleepiness Scale of 17. On machine, [place] Sleepiness Scale is reduced to 3. 3. Mild periodic limb movements were documented during the sleep study. 4. Hypertension. 5. Hyperlipidemia. 6. Acid reflux. 7. Hypothyroidism. 8. History of chronic obstructive pulmonary disease. 9. Irritable bowel syndrome. 10.Glaucoma. 11.Benign prostatic hypertrophy. 12.History of Perez's esophagus. PLAN: 1. Patient will continue to use PAP equipment every night for the whole night. I discussed with the patient the position of the machine, position of the tube and adjustments of humidity. 2. Sleep hygiene with regular time in bed for at least 7-1/2 to 8 hours. 3. Precautions related to driving. No driving if feeling sleepiness. 4. I will maintain all necessary prescription for PAP supplies including mask, tube, filters. 5. Watching weight. 6. Follow-up visit in 6 months or earlier if patient has any problems. Thank you very much for allowing me to participate in the management of your patient. Sincerely, Elver Trinidad MD, PhD, FAASM Diplomat of [place] [employer] Sleep Medicine Board of [place] [employer] Medicine Award Clerk of [facility] MMODL / LUISN: [id number] /
== END ==
LOC: SLEEP 14:59
PROVIDERS: ATTEND Internal Medicine
DX: G47.33 Obstructive sleep apnea (adult) (pediatric) (principal); G47.61 Periodic limb movement disorder; I10 Essential (primary) hypertension; E78.5 Hyperlipidemia, unspecified; K21.9 Gastro-esophageal reflux disease without esophagitis; E03.9 Hypothyroidism, unspecified; J44.9 Chronic obstructive pulmonary disease, unspecified; K58.9 Irritable bowel syndrome, unspecified; N40.0 Benign prostatic hyperplasia without lower urinary tract symptoms; H40.9 Unspecified glaucoma; Z87.19 Personal history of other diseases of the digestive system; Z88.5 Allergy status to narcotic agent

== ENCOUNTER → 2022-01-17 | Outpatient (CLI) | payer MEDICARE, BC ==
--- NOTE | 2022-01-17 13:47 | P.PN ---
Subjective DATE: 01/17/2022 FOLLOW UP VISIT. Patient with obstructive sleep apnea hypopnea syndrome return to sleep center for follow-up visit. Information from previous visit have been reviewed. Patient practically is not using PAP equipment because of difficulties to exhale well using full face mask. He also was not able to use nasal pillow mask at home. [place] sleepiness scale is 14, indicates sleepiness. I checked information from PAP unit. PAP unit pressure 5-11, average 9.0 cm H2O. Usage is 2 out of 30 nights , average 3 hours hours per night. Leak is 48.6 l/m, which is in high range. Apnea Hypopnea Index is 7.5, which is close to normal. Patient tried to use CPAP equipment in our office with nasal pillow mask and he was able to do it. MEDICATIONS:1. Lisinopril 20 mg once a day 2. Hydrochlorothiazide 3. Albuterol 4. Simvastatin 5. Eyedrops 6. Gabapentin 7. Omeprazole 8. Levothyroxine During physical exam: GENERAL: A pleasant patient without any distress. VITAL SIGNS: BP 135/77, HR 61, RR 18, weight 189.8, temperature 97.1, oxygen saturation at room air 100 % . HEENT: PERRLA, EOMI.low position of soft palate . NECK: Supple. No JVD. LUNGS: Clear to percussion and to auscultation. Good air exchange. No wheezing or rhonchi. HEART: S1, S2 regular. ABDOMEN: Soft and nontender.[] EXTREMITIES: No clubbing or cyanosis. SERVICE PROVIDER: Awake, alert, and oriented x3. No focal deficit. Impressions: 1. Obstructive sleep apnea-hypopnea syndrome. Patient was not able to use CPAP equipment at home. 3. Hypertension. 4. Hyperlipidemia. 5. Acid reflux. 6. Hypothyroidism. 7. History of COPD. 8. Glaucoma. 9. Irritable bowel syndrome. 10. BPH. 11. History of Perez's esophagus. Plan: 1. Continue using PAP equipment every night for the whole night with nasal pillow mask and chin strap if necessary. Patient promised to follow recommendations. 2. To change air filter at least 1-2 times per month. 3. PAP unit should stay lower then position of the head. 4. Advised patient to remove all remaining water from humidifier canister daily and make it dry after each usage. Refill canister with fresh distilled water be fore each usage. 5. Sleep hygiene with regular time in bed for at least 8 hours. 6. Precautions related to driving. No driving if feel any sleepiness. 7. I will maintain prescription for PAP supplies including mask, tube, filters. 8. Follow up visit in 2 months or earlier if patient has any problems. 9. Watching weight. Thank you very much for allowing me to participate in the management of your patient. Elver Trinidad MD, PhD, FAASM. Diplomat of [place] [employer], Sleep Medicine Board by [place] [employer] Manager Drilling of [facility] [place]
== END ==
LOC: SLEEP 13:08
PROVIDERS: ATTEND Internal Medicine
DX: G47.33 Obstructive sleep apnea (adult) (pediatric) (principal); I10 Essential (primary) hypertension; E78.5 Hyperlipidemia, unspecified; K21.9 Gastro-esophageal reflux disease without esophagitis; E03.9 Hypothyroidism, unspecified; N40.0 Benign prostatic hyperplasia without lower urinary tract symptoms; H40.9 Unspecified glaucoma; Z87.09 Personal history of other diseases of the respiratory system; K58.9 Irritable bowel syndrome, unspecified; K22.70 Barrett's esophagus without dysplasia; Z99.89 Dependence on other enabling machines and devices; Z88.5 Allergy status to narcotic agent
CPT/HCPCS: 99212

== ENCOUNTER → 2023-03-07 | Outpatient (CLI) | payer MEDICARE, BC ==
[2023-03-07 16:15] LABS: HCT 42.3 % (39.6-50.0); HGB 13.8 g/dL (13.0-17.0); MCHC 32.6 g/dL (32.0-37.0); MCV 98.1 FL (80.0-97.0); Mean Platelet Volume 10.4 FL (9.5-12.2); NRBC Per 100 WBC 0 X 10*3/uL (0.00-0.01); Platelet Count 268 X 10*3/uL (140-440); RBC 4.31 X 10*6/uL (4.40-5.60); RDW 12.9 % (11.5-14.5); WBC 5.77 X 10*3/uL (4.50-10.00)
[2023-03-07 16:41] LABS: Prostate Specific Antigen 2.63 ng/mL (0.000-6.500)
== END | disposition home or self-care (01) ==
LOC: LABWHC1 12:41
PROVIDERS: ATTEND Internal Medicine Endocrinology, Diabetes & Metabolism
DX: E29.1 Testicular hypofunction (principal)
CPT/HCPCS: 36415; 84153; 84403; 85027

== ENCOUNTER 2023-09-27 20:57 | Emergency (ER) | payer MEDICARE, BC ==
[2023-09-27 21:04] VITALS: TEMP 97.8
[2023-09-27] MEDS: HYDROcodone/APAP 5-325MG 1 EACH TAB PO STA (21:55)
[2023-09-27] MEDS: ceFAZolin 1,000 MG VIAL (IM USE) IM STA (21:57)
--- NOTE | 2023-09-28 00:11 | ED ---
Wound/Laceration HPI - General Chief Complaint: Wound/Laceration Stated Complaint: Left hand laceraction Time Seen by Provider: 09/27/23 21:21 Source: patient Mode of arrival: ambulatory Limitations: no limitations - History of Present Illness Initial Comments: 77-year-old male presenting with chief complaint of lacerations. Patient was using a table saw when he cut the distal ends of the third and fourth left-sided fingers. He was his tetanus shot is up-to-date. Bleeding is well-controlled at this time. This happened earlier in the day, patient tried to just wrap his fingers and continue on with his day, however he did have recurrent bleeding from the site. Limited range of motion - Related Data Home Medications Medication Instructions Recorded Confirmed Tamsulosin [Flomax] 0.8 mg PO QAM 10/23/15 03/09/20 lisinopriL [Zestril] 20 mg PO QAM 10/23/15 03/09/20 Beclomethasone Dip 80 Mcg/Puff 1 puff INHALATION BID 03/24/19 03/09/20 [Qvar 80 mcg] Dorzolamide 2% [Trusopt 2%] 1 drops BOTH EYES BID 03/24/19 03/09/20 Gabapentin [Neurontin] 100 mg PO BID 03/24/19 03/09/20 Glucosam/Bennie-Msm1/C/Francis/Bosw 1 each PO DAILY 03/24/19 03/09/20 [Glucosamine-Chondroitin Tablet] Latanoprost/Pf [Latanoprost 0.005% 1 drop BOTH EYES HS 03/24/19 03/09/20 Eye Drop] Levothyroxine Sodium [Synthroid] 75 mcg PO QAM 03/24/19 03/09/20 Methylphenidate HCl [Ritalin LA] 20 mg PO TID 03/24/19 03/09/20 Salsalate [Disalcid] 750 mg PO BID 03/24/19 03/09/20 Omeprazole 40 mg PO BID 07/17/19 03/09/20 Simvastatin [Zocor] 40 mg PO HS 07/17/19 03/09/20 Timolol 0.5% Ophth Soln [Timoptic 1 drop BOTH EYES DAILY 07/17/19 03/09/20 0.5% Ophth Soln] Albuterol Sulfate [Proair Hfa] 1 - 2 puff INHALATION Q6HR PRN 03/08/20 03/09/20 Aspirin 81 mg PO DAILY 03/08/20 03/09/20 Cholecalciferol [Vitamin D3 (25 2,000 unit PO DAILY 03/08/20 03/09/20 Mcg = 1000 Iu)] FLUoxetine HCL [PROzac] 30 mg PO QAM 03/08/20 03/09/20 Hydrocodone/Acetaminophen [[place] 1 tab PO TID PRN 03/08/20 03/09/20 5-325] Memantine [Namenda] 10 mg PO BID 03/08/20 03/09/20 Qunol Supplement 1 tab PO DAILY 03/08/20 03/09/20 buPROPion HCL [buPROPion HCL SR] 150 mg PO QAM 03/08/20 03/09/20 Previous Rx's Medication Instructions Recorded Cephalexin [Keflex] 500 mg PO Q6HR 5 Days #20 cap 09/28/23 traMADol HCl [Ultram] 50 mg PO Q6HR PRN 3 Days #12 tab 09/28/23 Allergies Allergy/AdvReac Type Severity Reaction Status Date / Time codeine Allergy Confusion Verified 09/27/23 21:04 Review of Systems ROS Statement: Those systems with pertinent positive or pertinent negative responses have been documented in the HPI. ROS Other: All systems not noted in ROS Statement are negative. Past Medical History Past Medical History: GERD/Reflux, Hyperlipidemia, Hypertension, Osteoarthritis (OA), Prostate Disorder, Rheumatoid Arthritis (RA) Additional Past Medical History / Comment(s): APONTE'S ESOPHAGUS,enlarged prostate History of Any Multi-Drug Resistant Organisms: None Reported Past Surgical History: Cholecystectomy, Ear Surgery, Hernia Repair, Orthopedic Surgery Additional Past Surgical History / Comment(s): HIATAL HERNIA REPAIR X 2, . REPAIR RIGHT EAR DRUM X 2. ORIF RIGHT ANKLE. Past Anesthesia/Blood Transfusion Reactions: No Reported Reaction Past Psychological History: ADD/ADHD, Depression Past Alcohol Use History: None Reported, Occasional - Past Family History Mother Family Medical History: No Reported History Father Family Medical History: Cancer Additional Family Medical History / Comment(s): bone Sister(s) Family Medical History: Cancer Additional Family Medical History / Comment(s): bone General Exam Limitations: no limitations General appearance: alert, in no apparent distress Head exam: Present: atraumatic, normocephalic Eye exam: Present: normal appearance, EOMI Neck exam: Present: normal inspection. Absent: meningismus Respiratory exam: Absent: respiratory distress Cardiovascular Exam: Present: regular rate Left Hand Wrist exam: Present: tenderness, swelling, deformity. Absent: full ROM Neurological exam: Present: alert, oriented X3 Psychiatric exam: Present: normal affect, normal mood Course Vital Signs 09/27/23 09/27/23 09/28/23 20:58 23:39 00:17 Temperature 97.8 F 97.8 F Pulse Rate 78 72 71 Respiratory 18 16 18 Rate Blood Pressure 134/84 118/86 127/84 O2 Sat by Pulse 97 95 95 Oximetry Medical Decision Making - Medical Decision Making Was pt. sent in by a medical professional or institution ([facility], [employer], urgent care, hospital, or long-term...) When possible be specific @ -No Did you speak to anyone other than the patient for history (EMS, parent, family, police, friend...)? What history was obtained from this source @ -No Did you review nursing and triage notes (agree or disagree)? Why? @ -I reviewed and agree with nursing and triage notes Were old charts reviewed (outside hosp., previous admission, EMS record, old EKG, old radiological studies, urgent care reports/EKG's, long-term records)? Report findings @ -No old charts were reviewed Differential Diagnosis (chest pain, altered mental status, abdominal pain women, abdominal pain men, vaginal bleeding, weakness, fever, dyspnea, syncope, headache, dizziness, GI bleed, back pain, seizure, CVA, palpatations, mental health, musculoskeletal)? @ -Differential Musculoskeletal Muscular strain, contusion, ligament sprain, fracture, arthritis, septic arthritis, bursitis, cellulitis, muscle spasm, nerve compression, DVT, arterial occlusion, herpes zoster, electrolyte abnormality, tumor.... This is not meant to be in all inclusive list EKG interpreted by me (3pts min.). @ -As above X-rays interpreted by me (1pt min.). @ -X-ray positive for laceration of the third and fourth digits. No acute fracture. Chronic fracture deformity of the third metacarpal. CT interpreted by me (1pt min.). @ -None done U/S interpreted by me (1pt. min.). @ -None done What testing was considered but not performed or refused? (CT, X-rays, U/S, labs)? Why? @ -None What meds were considered but not given or refused? Why? @ -None Did you discuss the management of the patient with other professionals (professionals i.e. , PA, TILE SPRAYER, lab, RT, psych nurse, social psychologist, cutter in, teacher, staff weapons officer, pillowcase cutter)? Give summary @ -No Was smoking cessation discussed for >3mins.? @ -No Was critical care preformed (if so, how long)? @ -No Were there social determinants of health that impacted care today? How? (Homelessness, low income, unemployed, alcoholism, drug addiction, transportation, low edu. Level, literacy, decrease access to med. care, alf, rehab)? @ -No Was there de-escalation of care discussed even if they declined (Discuss DNR or withdrawal of care, Hospice)? DNR status @ -No What co-morbidities impacted this encounter? (DM, HTN, Smoking, COPD, CAD, Cancer, CVA, ARF, Chemo, Hep., AIDS, mental health diagnosis, sleep apnea, morbid obesity)? @ -None Was patient admitted / discharged? Hospital course, mention meds given and route, prescriptions, significant lab abnormalities, going to OR and other pertinent info. @ -77-year-old male presenting with injury to the left third and fourth digits after cutting the hands with a table saw. The ends are still attached to the finger. Patient initially given 1 g of Kefzol as it appears he has an open fracture. X-ray later shows chronic fracture deformity of the third metacarpal. Laceration repair is performed. Patient educated on wound care and signs of infection and discharged home. Follow-up with PCP. Report back to ER with any new or worsening symptoms. Discussed return parameters and answered all questions. Patient conveyed verbal understanding and agreed to the plan. I discussed this case in detail with my attending Dr. Hernandez Undiagnosed new problem with uncertain prognosis? @ -No Drug Therapy requiring intensive monitoring for toxicity (Heparin, Nitro, Insulin, Cardizem)? @ -No Were any procedures done? @ -Laceration repair Diagnosis/symptom? @ -Laceration with fracture deformity Acute, or Chronic, or Acute on Chronic? @ -Acute Uncomplicated (without systemic symptoms) or Complicated (systemic symptoms)? @ -Uncomplicated Side effects of treatment? @ -No Exacerbation, Progression, or Severe Exacerbation? @ -No Poses a threat to life or bodily function? How? (Chest pain, USA, CT, pneumonia, PE, COPD, DKA, ARF, appy, cholecystitis, CVA, Diverticulitis, Homicidal, Suicidal, threat to staff... and all critical care pts) @ -No Disposition Clinical Impression: Open fracture of distal phalanx Disposition: HOME SELF-CARE Condition: Fair Instructions (If sedation given, give patient instructions): Care For Your Stitches (ED), Laceration (ED), Finger Fracture (ED) Additional Instructions: Follow-up with orthopedics. Report back to ER with any new or worsening symptoms. Take medication as prescribed. Prescriptions: Cephalexin [Keflex] 500 mg PO Q6HR 5 Days #20 cap traMADol HCl [Ultram] 50 mg PO Q6HR PRN 3 Days #12 tab PRN Reason: Pain Is patient prescribed a controlled substance at d/c from ED?: Yes When asked, does pt state using other controlled substances?: No If prescribed controlled substance>3 days was MAPS reviewed?: Prescribed <3 Days If opioid is for acute pain is fill amount 7 days or less?: Yes Referrals: Nakul Burt MD [Primary Care Provider] - 1-2 days Ainsley Lyles DO [Doctor of Osteopathic Medicine] - 1-2 days Time of Disposition: 00:11
[2023-09-28] MEDS: traMADol 50 MG STARTER PACK 3 TAB BTL PO STA (00:15)
[2023-09-28 00:18] VITALS: BP 127/84; PULSE 71; RESP 18
--- NOTE | 2023-09-28 01:19 | XR ---
EXAM: XR Left Hand Complete, 3 or More Views CLINICAL HISTORY: ITS.REASON XR Reason: finger laceration TECHNIQUE: Frontal, lateral and oblique views of the left hand. COMPARISON: No relevant prior studies available. FINDINGS: Bones/joints: No acute fracture or malalignment. Chronic fracture deformity of the third metacarpal. Osteopenia. Soft tissues: Laceration of the third and fourth digits. No acute fracture. IMPRESSION: Laceration of the third and fourth digits. No acute fracture.
== END 2023-09-28 00:18 | disposition home or self-care (01) ==
LOC: EC 20:57
DX: S62.639A Displaced fracture of distal phalanx of unspecified finger, initial encounter for closed fracture (principal); Z88.5 Allergy status to narcotic agent; W31.2XXA Contact with powered woodworking and forming machines, initial encounter
CPT/HCPCS: 73130; 99283; 96372; 12001; J0690